=== PATIENT | male | born 1940 | race African-American/Black ===

== ENCOUNTER 2016-11-12 05:17 | Observation (INO) | payer MEDICARE, MEDICAID ==
[~2016-11-12] VITALS: Ht 165.1 cm; Wt 77.6 kg
[2016-11-12] MEDS ORDERED: LACTATED RINGERS 1,000 ML IV SCH (06:40)
[2016-11-12] MEDS ORDERED: LABETALOL HCL 20MG/4ML CARPUJECT IV PRN (07:45)
[2016-11-12] MEDS ORDERED: HYDROMORPHONE HCL/PF 2MG/ML CPJ IV PRN (07:45)
[2016-11-12] MEDS ORDERED: MEPERIDINE HCL/PF 25MG/ML CPJ IV PRN (07:45)
[2016-11-12] MEDS ORDERED: ONDANSETRON HCL 4MG/2ML VIAL IV PRN (07:45)
[2016-11-12] MEDS ORDERED: LEVO500T15 PO (10:09)
[2016-11-12] MEDS ORDERED: NAP5EC PO (10:09)
[2016-11-12] MEDS ORDERED: ALPR2TAB2 PO (10:09)
[2016-11-12] MEDS ORDERED: TAMS-11 PO (10:09)
[2016-11-12] MEDS ORDERED: HYDR-519 PO (10:09)
[2016-11-12 16:30] VITALS: BP 127/72
[2016-11-12 20:00] VITALS: BP 104/82
[2016-11-12] MEDS ORDERED: HYDROCODONE/APAP 7.5/325MG 1 TAB TABLET PO PRN (21:24)
[2016-11-12] MEDS: OPIUM/BELLADONNA ALKALOIDS 30/16.2MG SUPP PR SCH (23:47)
[2016-11-13] VITALS: BP 112/65
[2016-11-13 04:00] VITALS: BP 114/68
[2016-11-13 06:48] LABS: CHLORIDE 106 mEq/L (98-107)
[2016-11-13 07:05] LABS: CARBON DIOXIDE 24 mEq/L (21-32)
[2016-11-13 07:18] LABS: HEMATOCRIT. 36.2 % (42.0-52.0); HEMOGLOBIN. 11.9 g/dL (14.0-18.0); MEAN CORPUSCULAR HEMOGLOBIN 22.2 pg (28.0-32.0); MEAN CORPUSCULAR VOLUME 67.5 fL (80.0-94.0); MEAN PLATELET VOLUME 9.5 fl (7.4-10.4); PLATELET 150 x1000/uL (130-400); RED BLOOD CELL COUNT 5.36 mill/uL (4.7-6.1); RED CELL DISTRIBUTION WIDTH 15.9 % (11.6-14.6)
[2016-11-13 08:00] VITALS: BP 136/80
[2016-11-13 09:07] VITALS: BP 136/80
[2016-11-13 09:29] VITALS: BP 136/80
[2016-11-13] MEDS: OPIUM/BELLADONNA ALKALOIDS 30/16.2MG SUPP PR SCH (09:29)
[2016-11-13 10:46] LABS: PLATELET ESTIMATE NORMAL
== END 2016-11-13 10:48 | disposition home or self-care (01) ==
LOC: OR 05:17 → INTOOBSV 18:48 → 6EST 18:48
PROVIDERS: ADMIT Specialist; ATTEND Specialist
DX: N40.1 Benign prostatic hyperplasia with lower urinary tract symptoms (principal); N13.8 Other obstructive and reflux uropathy
CPT/HCPCS: 36415; 52214; 80048; 85025; 88305; G0378; J1170; J7120

== ENCOUNTER → 2018-08-17 | Outpatient (CLI) | payer MEDICARE, MEDICAID ==
[~2018-08-17] MED LIST: ALPR2TAB2 PO; HYDR-519 PO; LEVO500T2 PO; NAP5EC PO; TAMS-11 PO
== END | disposition home or self-care (01) ==
LOC: EDBD 12:30 → RAD 12:30
DX: I51.7 Cardiomegaly (principal); I70.0 Atherosclerosis of aorta
CPT/HCPCS: 71046